=== PATIENT | female | born 1950 | race Caucasian/White ===

== ENCOUNTER 2017-01-03 12:50 | Inpatient (IN) | payer BC ==
[2017-01-03] MEDS ORDERED: Polyethylene Glycol 3350 Powder 17 GM Packet PO PRN (14:17)
[2017-01-03] MEDS ORDERED: Sodium Chloride 0.9% 10 ML Syringe FLUSH PRN (14:17)
[2017-01-03] MEDS ORDERED: Albuterol 0.083% 2.5 MG/3 ML Neb Soln NEB PRN (14:17)
[2017-01-03] MEDS ORDERED: Ondansetron 4 MG Tab.DIS PO PRN (14:17)
[2017-01-03] MEDS ORDERED: Acetaminophen 325 MG Tab PO PRN (14:17)
[2017-01-03] MEDS ORDERED: Diazepam 5 MG Tab PO PRN (14:20)
--- NOTE | 2017-01-03 14:27 | PCM.HP ---
H&P History of Present Illness - General Date of Service: 01/03/17 Admit Problem/Dx: Admission Diagnosis/Problem Admission Diagnosis/Problem Pneumonia Source of Information: Patient, Provider History Limitations: Reports: No limitations - History of Present Illness Initial Comments - Free Text/Narative: Merissa presents to the hospital as a direct admission from the clinic where she presented with fever cough and shortness of breath. Workup in the clinic was suggestive of a lingular pneumonia and she was sent to the hospital for admission with borderline oxygen numbers. She reports that she has been struggling with a cough for the past month and that she was fine be getting better until the last 4 days. Over the past 4 days she has developed an increase in her cough and shortness of breath. Her cough has now become productive with brownish sputum. She has had temperatures as high as 102 in the last week. Temperatures the past few days have been 99-100. She has not had much of an appetite though she has maintained hydration fairly well. Energy is greatly decreased from baseline. She is short of breath with even minimal activity. No complaints of abdominal pain or nausea. Bowels have remained normal. She had antibiotics and steroids one month ago and felt better after taking those but feels worse again. No complaints of chest pain or hemoptysis. - Related Data Allergies/Adverse Reactions: Allergies Allergy/AdvReac Type Severity Reaction Status Date / Time levofloxacin [From Levaquin] Allergy Rash Verified 09/26/16 09:57 amoxicillin trihydrate AdvReac Nausea and Verified 09/26/16 09:57 [From Augmentin] Vomiting Home Medications: Home Meds Diazepam [Valium] 5 mg PO BID PRN 06/22/14 [History] Triamcinolone Acetonide [Kenalog 0.1% Crm] 1 applic TOP BID PRN 06/22/14 [ History] Urea [Urea 40% Crm] 1 applic TOP BID PRN 06/22/14 [History] Ca Citrate/Mgox/Vit D3/B6/Min [Calcium Citrate Plus Tablet] 1 tab PO BID [History] Cyanocobalamin (Vitamin B-12) [Vitamin B-12] 2,500 mcg SL DAILY 11/28/15 [ History] Multivitamin-Min/Iron/FA/Vit K [Multi-Day Plus Minerals Tablet] 1 tab PO DAILY 11/28/15 [History] Omeprazole [Prilosec] 40 mg PO BID 11/28/15 [History] Vitamin B Complex [B Complex] 1 tab PO DAILY 11/28/15 [History] Albuterol [IJD: Ventolin HFA] 2 puff INH Q6H PRN 09/24/16 [History] Aspirin [Adult Low Dose Aspirin EC] 81 mg PO DAILY 09/24/16 [History] Cholecalciferol (Vitamin D3) [Just D] 800 units PO DAILY 09/24/16 [History] Clobetasol [Temovate 0.05% Oint] 1 applic TOP BID 09/24/16 [History] Iron,Carbonyl/Ascorbic Acid [Vitron-C Tablet] 1 tab PO BID 09/24/16 [History] Metoprolol Succinate [Toprol XL] 25 mg PO DAILY 09/24/16 [History] traZODone 50 - 100 mg PO BEDTIME PRN 09/24/16 [History] Umeclidinium Brm/Vilanterol Tr [Anoro Ellipta 62.5-25 Mcg INH] 1 puff INH DAILYRT 01/03/17 [History] Past Medical History HEENT History: Reports: None Cardiovascular History: Reports: Hypertension Respiratory History: Reports: COPD Gastrointestinal History: Reports: Colon polyp, GERD Genitourinary History: Reports: Renal calculus STRIPPER PRELIMINARY History: Reports: Musculoskeletal History: Reports: Arthritis, Fracture Other Musculoskeletal History: hx ankle fracture Neurological History: Reports: Migraines Hematologic History: Reports: B12 deficiency Dermatologic History: Reports: Psoriasis - Infectious Disease History Infectious Disease History: Reports: Chicken pox - Past Surgical History HEENT Surgical History: Reports: Naso-sinus surgery Cardiovascular Surgical History: Reports: None Respiratory Surgical History: Reports: None GI Surgical History: Reports: Appendectomy, Bariatric procedure, Cholecystectomy , Colonoscopy, EGD, Hernia, inguinal Female Surgical History: Reports: None, section Neurological Surgical History: Reports: Other (see below) Other Neurological Surgeries/Procedures: ruptured disc in neck Musculoskeletal Surgical History: Reports: None Social & Family History - Family History Respiratory: Reports: COPD Musculoskeletal: Reports: Arthritis Neurological: Reports: Migraines Dermatologic: Reports: Psoriasis Oncologic: Reports: Breast - Tobacco Use Smoking Status *Q: Former Smoker Years of Tobacco use: 30 Packs/Tins Daily: 2 Used Tobacco, but Quit: Yes Month Tobacco Last Used: 9 years ago Tobacco Use Comment: quit 9 years ago Second Hand Smoke Exposure: No - Caffeine Use Caffeine Use: Reports: Coffee Caffeine Use Comment: 2 cups per day - Alcohol Use Days Per Week of Alcohol Use: 0 - Recreational Drug Use Recreational Drug Use: No H&P Review of Systems - Review of Systems: Review Of Systems: See Below Free Text/Narrative: A complete 12 point review of systems was obtained. Pertinent positives and negatives are noted in the history of present illness. All other systems were reviewed and were negative except as noted. Exam - Exam Exam: See Below - Vital Signs Weight: 83.915 kg - Exam Quality Assessment: No: supplemental oxygen, urinary catheter General: alert, oriented, cooperative. No: mild distress HEENT: Conjunctiva clear, Mucosa moist & pink, Normal nasal septum. No: Scleral icterus Neck: supple, trachea midline. No: lymphadenopathy, thyromegaly Lungs: Clear to auscultation, Normal respiratory effort Cardiovascular: regular rate, regular rhythm Abdomen: normal bowel sounds, soft. No: distention, tenderness Back Exam: normal inspection, full range of motion Extremities: normal inspection, normal pulses. No: edema Peripheral Pulses: 2+: dorsalis pedis (L), dorsalis pedis (R) Skin: warm, dry Neuro Extensive - Mental Status: alert, oriented x3, nl response to commands Neuro Extensive - Motor, Sensory, Reflexes: CN II-XII intact. No: dysarthria, abnormal motor, tremor Psychiatric: alert, normal affect - Patient Data Lab Results last 24 hrs: WBC 14K Imaging Impressions last 24 hrs: chest x-ray in the clinic suggested lingular infiltrate *Q Meaningful Use (ADM) - VTE *Q VTE Criteria *Q: - Stroke *Q Stroke Criteria *Q: - AMI *Q AMI Criteria *Q: - Problem List (1) Pneumonia SNOMED Code(s): 284764814 ICD Code: J18.9 - PNEUMONIA, UNSPECIFIED ORGANISM Status: Acute Current Visit: Yes Qualifiers: Pneumonia type: due to unspecified organism Laterality: left Lung location: unspecified part of lung Qualified Code(s): J18.9 - Pneumonia, unspecified organism Problem List Initiated/Reviewed/Updated: Yes Orders Last 24hrs: Active Orders 24 hr Category Date Time Status Patient Status [ADT] Routine ADT 01/03/17 14:17 Ordered Notify Provider Vital Signs [RC] ASDIRECTED Care 01/03/17 14:18 Ordered Oxygen Therapy [RC] PRN Care 01/03/17 14:17 Ordered Peripheral IV Care [RC] . DIRECTED Care 01/03/17 14:20 Ordered RT Aerosol Therapy [RC] ASDIRECTED Care 01/03/17 14:20 Ordered Up ad Martine [RC] ASDIRECTED Care 01/03/17 14:17 Ordered VTE/DVT Education [RC] Per Unit Routine Care 01/03/17 14:17 Ordered Vital Signs [RC] Q4H Care 01/03/17 14:17 Ordered Regular Diet [DIET] Diet 01/03/17 Dinner Ordered BASIC METABOLIC PANEL,BMP [CHEM] AM Lab 01/04/17 05:11 Ordered CBC W/O DIFF,HEMOGRAM [HEME] AM Lab 01/04/17 05:11 Ordered Acetaminophen [Tylenol] Med 01/03/17 14:17 Ordered 650 mg PO Q4H PRN Albuterol [Proventil Neb Soln] Med 01/03/17 14:17 Ordered 2.5 mg NEB Q4H PRN Aspirin [Adult Low Dose Aspirin EC] Med 01/04/17 09:00 Ordered 81 mg PO DAILY Azithromycin [Zithromax] Med 01/03/17 14:30 Ordered 500 mg PO DAILY Benzonatate [Tessalon Perles] Med 01/03/17 14:22 Ordered 100 mg PO TID PRN Codeine/guaiFENesin [Robitussin AC] Med 01/03/17 14:22 Ordered 10 ml PO Q4H PRN Diazepam [Valium] Med 01/03/17 14:20 Ordered 5 mg PO BID PRN Ibuprofen [Motrin] Med 01/03/17 14:17 Ordered 600 mg PO Q6H PRN Metoprolol Succinate [Toprol XL] Med 01/04/17 09:00 Ordered 25 mg PO DAILY Omeprazole [Prilosec] Med 01/03/17 21:00 Ordered 40 mg PO BID Ondansetron [Zofran ODT] Med 01/03/17 14:17 Ordered 4 mg PO Q6H PRN Polyethylene Glycol 3350 [MiraLAX] Med 01/03/17 14:17 Ordered 17 gm PO DAILY PRN Sodium Chloride 0.9% @ 125 MLS/HR (1000ml) Med 01/03/17 14:30 Ordered Sodium Chloride 0.9% [Normal Saline] 1,000 ml IV ASDIRECTED Sodium Chloride 0.9% [Saline Flush] Med 01/03/17 14:17 Ordered 10 ml FLUSH ASDIRECTED PRN Umeclidinium Brm/Vilanterol Tr [Anoro Ellipta 62.5-25 Med 01/04/17 07:00 Ordered Mcg INH] 1 puff INH DAILYRT cefTRIAXone [Rocephin] 1 gm Med 01/03/17 14:30 Ordered Sodium Chloride 0.9% [Normal Saline] 50 ml IV Q24H traZODone [traZODone] Med 01/03/17 14:20 Ordered 50 - 100 mg PO BEDTIME PRN Peripheral IV Insertion Adult [OM.PC] Routine Oth 01/03/17 14:17 Ordered Sequential Compression Device [OM.PC] Per Unit Routine Oth 01/03/17 14:19 Ordered Resuscitation Status Routine Resus Stat 01/03/17 14:17 Ordered Assessment/Plan Comment:: Assessment and plan - Left lung pneumonia - borderline oxygen numbers in the clinic but not currently hypoxic. She does have leukocytosis at this time but is not currently febrile. Symptomatic with activity. Mildly dehydrated. -Ceftriaxone and azithromycin with history of COPD -Supplement oxygen if needed -Cough suppressant -Blood cultures if fever Hypertension - blood pressure currently normal and usual medications will be continued. Maintenance issues - - DVT prophylaxis - mechanical - GI prophylaxis - not indicated - Nutrition - regular diet - Miller catheter - not indicated CODE STATUS - full code Admission justification - patient will be referred to observation status for initial management with symptoms but not significant objective findings. Disposition - anticipate discharge to home in the next one or 2 days Primary care physician - Dr. Zen Sawyer M.D.
[2017-01-03] MEDS: cefTRIAXone 1 GM in Sodium Chloride 0.9% 50 ML IV SCH (15:06)
[2017-01-03] MEDS: Azithromycin 250 MG Tab PO SCH (15:11)
[2017-01-03] MEDS: Codeine/guaiFENesin 100mg-10 MG/5 ML Syrup 10 ML Cup PO PRN ×2 (15:29→20:02)
[2017-01-03] MEDS: Pantoprazole 40 MG Tab.CR PO SCH (17:31)
[2017-01-03] MEDS: Ibuprofen 600 MG Tab PO PRN ×2 (17:31→22:48)
[2017-01-03] MEDS: Benzonatate 100 MG Cap PO PRN (22:47)
[2017-01-03] MEDS: Sodium Chloride 0.9% 1,000 ML IV SCH (22:50)
[2017-01-03] MEDS: traZODone 50 MG Tab PO PRN (22:54)
[2017-01-04] MEDS: Codeine/guaiFENesin 100mg-10 MG/5 ML Syrup 10 ML Cup PO PRN ×4 (03:56→21:44)
[2017-01-04] MEDS: Sodium Chloride 0.9% 1,000 ML IV SCH (06:33)
[2017-01-04] MEDS: Benzonatate 100 MG Cap PO PRN ×2 (06:37→21:44)
[2017-01-04] MEDS ORDERED: Non-Formulary Medication 1 Each (Umeclidinium Brm/Vilanterol Tr [Anoro Ellipta 62.5-25 Mcg INH SCH (07:00)
[2017-01-04] MEDS: Pantoprazole 40 MG Tab.CR PO SCH ×2 (07:35→17:00)
[2017-01-04] MEDS: Ibuprofen 600 MG Tab PO PRN ×3 (07:40→21:44)
[2017-01-04] MEDS: ANORO ELLIPTA 62.5MCG/25MCG INHALER (PTOM) INH SCH (08:24)
[2017-01-04] MEDS: Metoprolol Succinate 25 MG Tab.ER PO SCH (08:33)
[2017-01-04] MEDS: Azithromycin 250 MG Tab PO SCH (08:34)
[2017-01-04] MEDS: Aspirin 81 MG Tab.EC PO SCH (08:34)
--- NOTE | 2017-01-04 13:34 | PCM.PN ---
- General Info Date of Service: 01/04/17 Functional Status: Reports: pain controlled, tolerating diet - Review of Systems Pulmonary: Reports: shortness of breath, cough Systems Review Comment:: No acute events overnight but patient was not feeling any better today. [place] a little better briefly last night but is still very short of breath and coughing frequently. Oxygenation has been stable and so far she has not required supplemental oxygen. She is short of breath with any activity. She has no energy and no appetite. She is wheezing today. No fevers overnight. - Patient Data Vitals - most recent: Last Vital Signs Temp 36.9 C 01/04/17 10:43 Pulse 63 01/04/17 10:43 Resp 18 01/04/17 10:43 BP 112/56 L 01/04/17 10:43 Pulse Ox 95 01/04/17 10:43 Weight - most recent: 83.915 kg I&O - last 24 hours: Intake & Output 01/03/17 01/04/17 01/04/17 22:59 06:59 14:59 Intake Total 650 1280 Output Total 900 800 Balance -250 -800 1280 Lab Results last 24 hrs: Laboratory Results - last 24 hr 01/04/17 01/04/17 Range/Units 04:33 04:33 WBC 4.3 L (4.5-11.0) K/uL RBC 4.41 (3.30-5.50) M/uL Hgb 12.3 (12.0-15.0) g/dL Hct 39.6 (36.0-48.0) % MCV 90 (80-98) fL MCH 28 (27-31) pg MCHC 31 L (32-36) % Plt Count 298 (150-400) K/uL Sodium 143 (140-148) mmol/L Potassium 4.0 (3.6-5.2) mmol/L Chloride 109 H (100-108) mmol/L Carbon Dioxide 28 (21-32) mmol/L Anion Gap 10.0 (5.0-14.0) mmol/L BUN 11 (7-18) mg/dL Creatinine 0.9 (0.6-1.0) mg/dL Est Cr Clr Drug Dosing 62.56 mL/min Estimated GFR (MDRD) > 60 (>60) Glucose 86 (74-106) mg/dL Calcium 8.2 L (8.5-10.1) mg/dL Med Orders - Current: Current Medications Acetaminophen (Tylenol) 650 mg PO Q4H PRN PRN Reason: Pain (Mild 1-3)/fever Last Admin: 01/03/17 15:35 Dose: 650 mg Albuterol (Proventil Neb Soln) 2.5 mg NEB Q4H PRN PRN Reason: Shortness Of Breath/wheezing Aspirin (Halfprin) 81 mg PO DAILY [facility] Last Admin: 01/04/17 08:34 Dose: 81 mg Azithromycin (Zithromax) 500 mg PO DAILY [facility] Last Admin: 01/04/17 08:34 Dose: 500 mg Benzonatate (Tessalon Perles) 100 mg PO TID PRN PRN Reason: Cough Last Admin: 01/04/17 06:37 Dose: 100 mg Diazepam (Valium.) 5 mg PO BID PRN PRN Reason: Anxiety Guaifenesin/Codeine Phosphate (Robitussin Ac) 10 ml PO Q4H PRN PRN Reason: Cough Last Admin: 01/04/17 12:43 Dose: 10 ml Ceftriaxone Sodium 1 gm/ (Sodium Chloride) 50 mls @ 100 mls/hr IV Q24H [facility] Last Admin: 01/03/17 15:06 Dose: 100 mls/hr Ibuprofen (Motrin) 600 mg PO Q6H PRN PRN Reason: Pain/Fever Last Admin: 01/04/17 07:40 Dose: 600 mg Metoprolol Succinate (Toprol Xl) 25 mg PO DAILY [facility] Last Admin: 01/04/17 08:33 Dose: 25 mg Ondansetron HCl (Zofran Odt) 4 mg PO Q6H PRN PRN Reason: Nausea able to take PO Pantoprazole Sodium (Protonix) 40 mg PO BIDAC [facility] Last Admin: 01/04/17 07:35 Dose: 40 mg Anoro Ellipta 62. 5mcg/25mcg Inhaler ( Ptom) 0 each INH DAILYRT [facility] Last Admin: 01/04/17 08:24 Dose: 1 each Polyethylene Glycol (Miralax) 17 gm PO DAILY PRN PRN Reason: Constipation Sodium Chloride (Saline Flush) 10 ml FLUSH ASDIRECTED PRN PRN Reason: Keep Vein Open Trazodone HCl (Trazodone) 50 - 100 mg PO BEDTIME PRN PRN Reason: Sleep Last Admin: 01/03/17 22:54 Dose: 100 mg Discontinued Medications Sodium Chloride (Normal Saline) 1,000 mls @ 125 mls/hr IV ASDIRECTED [facility] Last Admin: 01/04/17 06:33 Dose: 125 mls/hr - Exam Quality Assessment: No: supplemental oxygen General: alert, oriented, cooperative, no acute distress Neck: supple Lungs: Crackles (rare left lung base), Wheezing (mild exp lower lung dow) Cardiovascular: Regular Rate, Regular Rhythm Abdomen: soft, no distension Extremities: no edema Skin: warm, dry Psy/Mental Status: alert, normal affect - Problem List & Annotations (1) Pneumonia SNOMED Code(s): 849587605 Code(s): J18.9 - PNEUMONIA, UNSPECIFIED ORGANISM Status: Acute Current Visit: Yes Qualifiers: Pneumonia type: due to unspecified organism Laterality: left Lung location: unspecified part of lung Qualified Code(s): J18.9 - Pneumonia, unspecified organism - Problem List Review Problem List Initiated/Reviewed/Updated: Yes - My Orders Last 24 Hours: My Active Orders 01/03/17 14:17 Patient Status [ADT] Routine Oxygen Therapy [RC] PRN Up ad Martine [RC] ASDIRECTED VTE/DVT Education [RC] Per Unit Routine Vital Signs [RC] Q4H Acetaminophen [Tylenol] 650 mg PO Q4H PRN Albuterol [Proventil Neb Soln] 2.5 mg NEB Q4H PRN Ibuprofen [Motrin] 600 mg PO Q6H PRN Ondansetron [Zofran ODT] 4 mg PO Q6H PRN Polyethylene Glycol 3350 [MiraLAX] 17 gm PO DAILY PRN Sodium Chloride 0.9% [Saline Flush] 10 ml FLUSH ASDIRECTED PRN Peripheral IV Insertion Adult [OM.PC] Routine Resuscitation Status Routine 01/03/17 14:18 Notify Provider Vital Signs [RC] ASDIRECTED 01/03/17 14:19 Sequential Compression Device [OM.PC] Per Unit Routine 01/03/17 14:20 Peripheral IV Care [RC] Q12H RT Aerosol Therapy [RC] ASDIRECTED Diazepam [Valium] 5 mg PO BID PRN traZODone 50 - 100 mg PO BEDTIME PRN 01/03/17 14:22 Benzonatate [Tessalon Perles] 100 mg PO TID PRN Codeine/guaiFENesin [Robitussin AC] 10 ml PO Q4H PRN 01/03/17 14:30 Azithromycin [Zithromax] 500 mg PO DAILY cefTRIAXone [Rocephin] 1 gm Sodium Chloride 0.9% [Normal Saline] 50 ml IV Q24H 01/03/17 16:30 Pantoprazole [Protonix] 40 mg PO BIDAC 01/03/17 Dinner Regular Diet [DIET] 01/04/17 07:00 Patient's Own Medication [Ptom] 0 each INH DAILYRT 01/04/17 09:00 Aspirin [Halfprin] 81 mg PO DAILY Metoprolol Succinate [Toprol XL] 25 mg PO DAILY 01/04/17 13:32 RT Aerosol Therapy [RC] ASDIRECTED predniSONE 40 mg PO ONETIME ONE 01/04/17 14:00 Sodium Chloride 0.9% [Normal Saline] 1,000 ml IV ASDIRECTED 01/04/17 15:00 Albuterol [Proventil Neb Soln] 2.5 mg NEB QIDRT 01/05/17 07:30 predniSONE 20 mg PO BIDAC - Plan Plan:: Assessment and plan - Left lung pneumonia - no significant hypoxia but still has troublesome symptoms. Unclear if viral or bacterial though I'm treating as a bacterial infection at this time. She has developed wheezing today. -Ceftriaxone and azithromycin with history of COPD -Start prednisone with plan for five-day burst -Supplement oxygen if needed -Cough suppressant -Blood cultures if fever Hypertension - blood pressure currently normal and usual medications will be continued. Maintenance issues - - DVT prophylaxis - mechanical - GI prophylaxis - not indicated - Nutrition - regular diet Disposition - anticipate discharge to home tomorrow Kwasi Sawyer M.D.
[2017-01-04] MEDS ORDERED: predniSONE 20 MG Tab PO ONE (14:00)
[2017-01-04] MEDS ORDERED: Sodium Chloride 0.9% 1,000 ML IV SCH (14:00)
[2017-01-04] MEDS: Albuterol 0.083% 2.5 MG/3 ML Neb Soln NEB SCH ×2 (14:45→21:45)
[2017-01-04] MEDS: cefTRIAXone 1 GM in Sodium Chloride 0.9% 50 ML IV SCH (15:14)
[2017-01-04] MEDS: traZODone 50 MG Tab PO PRN (21:45)
[2017-01-05] MEDS: Codeine/guaiFENesin 100mg-10 MG/5 ML Syrup 10 ML Cup PO PRN ×2 (03:01→07:39)
[2017-01-05] MEDS: Albuterol 0.083% 2.5 MG/3 ML Neb Soln NEB SCH ×2 (07:05→10:47)
[2017-01-05] MEDS: ANORO ELLIPTA 62.5MCG/25MCG INHALER (PTOM) INH SCH (07:05)
[2017-01-05 07:22] VITALS: BP 128/64
[2017-01-05] MEDS ORDERED: predniSONE 20 MG Tab PO SCH (07:30)
[2017-01-05] MEDS: Pantoprazole 40 MG Tab.CR PO SCH (07:39)
[2017-01-05] MEDS: Metoprolol Succinate 25 MG Tab.ER PO SCH (08:24)
[2017-01-05] MEDS: Aspirin 81 MG Tab.EC PO SCH (08:24)
[2017-01-05] MEDS: Azithromycin 250 MG Tab PO SCH (08:24)
--- NOTE | 2017-01-05 10:11 | PCM.DCSUM1 ---
Discharge Summary - Hospital Course Brief History: 66-year-old female with history of COPD who presented with cough and shortness of breath and was admitted for management of a left lung pneumonia - Discharge Data Discharge Date: 01/05/17 Discharge Disposition: Home, Self-Care 01 Condition: Good - Discharge Diagnosis/Problem(s) (1) Pneumonia SNOMED Code(s): 053503446 ICD Code: J18.9 - PNEUMONIA, UNSPECIFIED ORGANISM Status: Acute Current Visit: Yes Qualifiers: Pneumonia type: due to unspecified organism Laterality: left Lung location: unspecified part of lung Qualified Code(s): J18.9 - Pneumonia, unspecified organism - Patient Summary/Data Hospital Course: Merissa presented to the clinic with cough and shortness of breath. workup revealed leukocytosis with a white blood cell count of 14,000 and did infiltrate in the lingula on the chest x-ray. She was borderline hypoxic and appeared ill so she was sent for direct admission. We started her on ceftriaxone and azithromycin have been provided some IV fluids. The evening after admission she was feeling a little better but by the next morning was feeling the same or a little worse than when she came to the clinic. She started wheezing the morning after admission so prednisone was started. Her vitals and oxygenation remained stable throughout the hospital stay. On the morning of discharge her wheezing has resolved. She is ambulating the entire length of the hospital without significant dyspnea. She does have a cough but has not had any fevers. She feels well enough to go home at this time. The plan is for 2 additional days of azithromycin for a total of 5 days as well as 2 more days of prednisone for a total of 4 days. I did provide a prescription for nebulizers as well as Tessalon Perles. She will followup if needed if her symptoms do not continue to improve. - Patient Instructions Diet: Regular Diet as Tolerated Activity: As Tolerated Driving: May Drive Today Showering/Bathing: May Shower Notify Provider of: Fever, Increased Pain, Nausea and/or Vomiting Other/Special Instructions: 1. You were in the hospital for management of a left lung pneumonia. You also had some wheezing related to the infection suggesting this irritated your COPD. I recommended 2 additional days of antibiotic therapy with azithromycin taken once daily in the morning on Saturday and Saturday. You should also take prednisone twice daily with meals for 5 more doses. Your first dose will be due this evening with supper. I have also provided prescriptions for Tessalon to help with her cough and albuterol nebulizers to help with shortness of breath. 2. Continue your other home medications as previously prescribed. 3. Please seek medical attention if you develop fever greater than 101, worsening shortness of breath or chest pain - Discharge Plan Prescriptions/Med Rec: Albuterol [IJD: Albuterol] 2.5 mg NEB Q4H PRN #60 nebule PRN Reason: Shortness Of Breath Azithromycin 500 mg PO DAILY #2 tablet Benzonatate [Tessalon Perles] 100 mg PO TID PRN #30 cap PRN Reason: Cough Prednisone [IJD: predniSONE] 20 mg PO BIDAC #5 tablet Home Medications: Home Meds Diazepam [Valium] 5 mg PO BID PRN 06/22/14 [History] Triamcinolone Acetonide [Kenalog 0.1% Crm] 1 applic TOP BID PRN 06/22/14 [ History] Urea [Urea 40% Crm] 1 applic TOP BID PRN 06/22/14 [History] Ca Citrate/Mgox/Vit D3/B6/Min [Calcium Citrate Plus Tablet] 1 tab PO BID [History] Cyanocobalamin (Vitamin B-12) [Vitamin B-12] 2,500 mcg SL DAILY 11/28/15 [ History] Multivitamin-Min/Iron/FA/Vit K [Multi-Day Plus Minerals Tablet] 1 tab PO DAILY 11/28/15 [History] Omeprazole [Prilosec] 40 mg PO BID 11/28/15 [History] Vitamin B Complex [B Complex] 1 tab PO DAILY 11/28/15 [History] Albuterol [IJD: Ventolin HFA] 2 puff INH Q6H PRN 09/24/16 [History] Aspirin [Adult Low Dose Aspirin EC] 81 mg PO DAILY 09/24/16 [History] Cholecalciferol (Vitamin D3) [Just D] 800 units PO DAILY 09/24/16 [History] Clobetasol [Temovate 0.05% Oint] 1 applic TOP BID 09/24/16 [History] Iron,Carbonyl/Ascorbic Acid [Vitron-C Tablet] 1 tab PO BID 09/24/16 [History] Metoprolol Succinate [Toprol XL] 25 mg PO DAILY 09/24/16 [History] traZODone 50 - 100 mg PO BEDTIME PRN 09/24/16 [History] Umeclidinium Brm/Vilanterol Tr [Anoro Ellipta 62.5-25 Mcg INH] 1 puff INH DAILYRT 01/03/17 [History] Albuterol [IJD: Albuterol] 2.5 mg NEB Q4H PRN #60 nebule 01/05/17 [Rx] Azithromycin 500 mg PO DAILY #2 tablet 01/05/17 [Rx] Benzonatate [Tessalon Perles] 100 mg PO TID PRN #30 cap 01/05/17 [Rx] Prednisone [IJD: predniSONE] 20 mg PO BIDAC #5 tablet 01/05/17 [Rx] Patient Handouts: Community-Acquired Pneumonia, Adult, Prednisone tablets Referrals: Danny Zaldivar MD [Primary Care Provider] - (followup as needed if your symptoms do not continue to get better or they get worse) - Discharge Summary/Plan Comment DC Time >30 min.: No (25) - Patient Data Vitals - Most Recent: Last Vital Signs Temp 36.7 C 01/05/17 07:00 Pulse 103 H 01/05/17 08:24 Resp 18 01/05/17 07:00 BP 128/64 01/05/17 08:24 Pulse Ox 97 01/05/17 07:00 Weight - Most Recent: 83.915 kg I&O - Last 24 hours: Intake & Output 01/04/17 01/05/17 01/05/17 22:59 06:59 14:59 Intake Total 2736 1250 Output Total 1250 1050 Balance 1486 200 Med Orders - Current: Current Medications Acetaminophen (Tylenol) 650 mg PO Q4H PRN PRN Reason: Pain (Mild 1-3)/fever Last Admin: 01/03/17 15:35 Dose: 650 mg Albuterol (Proventil Neb Soln) 2.5 mg NEB Q4H PRN PRN Reason: Shortness Of Breath/wheezing Last Admin: 01/05/17 04:44 Dose: 2.5 mg Albuterol (Proventil Neb Soln) 2.5 mg NEB QIDRT [facility] Last Admin: 01/05/17 07:05 Dose: 2.5 mg Aspirin (Halfprin) 81 mg PO DAILY [facility] Last Admin: 01/05/17 08:24 Dose: 81 mg Azithromycin (Zithromax) 500 mg PO DAILY [facility] Last Admin: 01/05/17 08:24 Dose: 500 mg Benzonatate (Tessalon Perles) 100 mg PO TID PRN PRN Reason: Cough Last Admin: 01/04/17 21:44 Dose: 100 mg Diazepam (Valium.) 5 mg PO BID PRN PRN Reason: Anxiety Guaifenesin/Codeine Phosphate (Robitussin Ac) 10 ml PO Q4H PRN PRN Reason: Cough Last Admin: 01/05/17 07:39 Dose: 10 ml Ceftriaxone Sodium 1 gm/ (Sodium Chloride) 50 mls @ 100 mls/hr IV Q24H [facility] Last Admin: 01/04/17 15:14 Dose: 100 mls/hr Sodium Chloride (Normal Saline) 1,000 mls @ 50 mls/hr IV ASDIRECTED [facility] Last Admin: 01/04/17 15:21 Dose: 50 mls/hr Ibuprofen (Motrin) 600 mg PO Q6H PRN PRN Reason: Pain/Fever Last Admin: 01/04/17 21:44 Dose: 600 mg Metoprolol Succinate (Toprol Xl) 25 mg PO DAILY [facility] Last Admin: 01/05/17 08:24 Dose: 25 mg Ondansetron HCl (Zofran Odt) 4 mg PO Q6H PRN PRN Reason: Nausea able to take PO Pantoprazole Sodium (Protonix) 40 mg PO BIDAC [facility] Last Admin: 01/05/17 07:39 Dose: 40 mg Anoro Ellipta 62. 5mcg/25mcg Inhaler ( Ptom) 0 each INH DAILYRT [facility] Last Admin: 01/05/17 07:05 Dose: 1 each Polyethylene Glycol (Miralax) 17 gm PO DAILY PRN PRN Reason: Constipation Prednisone (Prednisone) 20 mg PO BIDAC [facility] Last Admin: 01/05/17 07:39 Dose: 20 mg Sodium Chloride (Saline Flush) 10 ml FLUSH ASDIRECTED PRN PRN Reason: Keep Vein Open Trazodone HCl (Trazodone) 50 - 100 mg PO BEDTIME PRN PRN Reason: Sleep Last Admin: 01/04/17 21:45 Dose: 100 mg Discontinued Medications Sodium Chloride (Normal Saline) 1,000 mls @ 125 mls/hr IV ASDIRECTED [facility] Last Admin: 01/04/17 06:33 Dose: 125 mls/hr Prednisone (Prednisone) 40 mg PO ONETIME ONE Stop: 01/04/17 14:01 Last Admin: 01/04/17 15:17 Dose: 40 mg *Q Meaningful Use (DIS) - VTE *Q VTE Criteria *Q: - Stroke *Q Stroke Criteria *Q: - AMI *Q AMI Criteria *Q:
== END 2017-01-05 11:45 | disposition home or self-care (01) | DRG 139 ==
LOC: JP.MS 12:50
PROVIDERS: ADMIT Internal Medicine; ATTEND Internal Medicine
DX: J18.9 Pneumonia, unspecified organism (principal); J44.9 Chronic obstructive pulmonary disease, unspecified; K21.9 Gastro-esophageal reflux disease without esophagitis; M19.90 Unspecified osteoarthritis, unspecified site; E53.8 Deficiency of other specified B group vitamins; L40.9 Psoriasis, unspecified; Z98.84 Bariatric surgery status; Z87.891 Personal history of nicotine dependence; Z88.1 Allergy status to other antibiotic agents; Z79.82 Long term (current) use of aspirin; I10 Essential (primary) hypertension; R06.2 Wheezing; Z79.52 Long term (current) use of systemic steroids
CPT/HCPCS: 36415; 80048; 85027; 94640; 94640-76; 96361; 96374; 96376; A9270-GY; G0378; G0379; J0696; J7040; J7050

== ENCOUNTER 2017-06-09 16:32 | Emergency (ER) | payer BC ==
[2017-06-09] MEDS ORDERED: Albuterol/Ipratropium 3.0-0.5 MG/3 ML Neb Soln NEB ONE ×2 (16:53→17:40)
[2017-06-09] MEDS ORDERED: Sodium Chloride 0.9% 10 ML Syringe FLUSH PRN (16:58)
[2017-06-09] MEDS ORDERED: methylPREDNISolone Sodium Succinate 125 MG/2 ML SDV IM ONE (16:59)
--- NOTE | 2017-06-09 18:35 | EDM.PDOC ---
<Ralph Lebron - Last Filed: 06/09/17 21:45> ED HPI GENERAL MEDICAL PROBLEM - General Chief Complaint: Respiratory Problem Stated Complaint: COPD Time Seen by Provider: 06/09/17 16:52 Anterior Chest Pain Score (Numeric/FACES): 3 - Related Data Allergies Allergy/AdvReac Type Severity Reaction Status Date / Time levofloxacin [From Levaquin] Allergy Rash Verified 06/09/17 16:45 amoxicillin trihydrate AdvReac Nausea and Verified 06/09/17 16:45 [From Augmentin] Vomiting Home Meds: Home Meds Diazepam [Valium] 5 mg PO BID PRN 06/22/14 [History] Triamcinolone Acetonide [Kenalog 0.1% Crm] 1 applic TOP BID PRN 06/22/14 [ History] Urea [Urea 40% Crm] 1 applic TOP BID PRN 06/22/14 [History] Ca Citrate/Mgox/Vit D3/B6/Min [Calcium Citrate Plus Tablet] 1 tab PO BID [History] Cyanocobalamin (Vitamin B-12) [Vitamin B-12] 2,500 mcg SL DAILY 11/28/15 [ History] Multivitamin-Min/Iron/FA/Vit K [Multi-Day Plus Minerals Tablet] 1 tab PO DAILY 11/28/15 [History] Omeprazole [Prilosec] 40 mg PO BID 11/28/15 [History] Vitamin B Complex [B Complex] 1 tab PO DAILY 11/28/15 [History] Albuterol [IJD: Ventolin HFA] 2 puff INH Q6H PRN 09/24/16 [History] Aspirin [Adult Low Dose Aspirin EC] 81 mg PO DAILY 09/24/16 [History] Cholecalciferol (Vitamin D3) [Just D] 800 units PO DAILY 09/24/16 [History] Clobetasol [Temovate 0.05% Oint] 1 applic TOP BID 09/24/16 [History] Iron,Carbonyl/Ascorbic Acid [Vitron-C Tablet] 1 tab PO BID 09/24/16 [History] Metoprolol Succinate [Toprol XL] 25 mg PO DAILY 09/24/16 [History] traZODone 50 - 100 mg PO BEDTIME PRN 09/24/16 [History] Umeclidinium Brm/Vilanterol Tr [Anoro Ellipta 62.5-25 Mcg INH] 1 puff INH DAILYRT 01/03/17 [History] Albuterol [IJD: Albuterol] 2.5 mg NEB Q4H PRN #60 nebule 01/05/17 [Rx] Past Medical History HEENT History: Reports: None Cardiovascular History: Reports: Hypertension Respiratory History: Reports: COPD Gastrointestinal History: Reports: Colon Polyp, GERD Genitourinary History: Reports: Renal Calculus [employer] History: Reports: Musculoskeletal History: Reports: Arthritis, Fracture Other Musculoskeletal History: hx ankle fracture Neurological History: Reports: Migraines Hematologic History: Reports: B12 Deficiency Dermatologic History: Reports: Psoriasis - Infectious Disease History Infectious Disease History: Reports: Chicken Pox, Shingles - Past Surgical History HEENT Surgical History: Reports: Naso-Sinus Surgery Cardiovascular Surgical History: Reports: None Respiratory Surgical History: Reports: None GI Surgical History: Reports: Appendectomy, Bariatric Procedure, Cholecystectomy , Colonoscopy, EGD, Hernia, Inguinal Female Surgical History: Reports: None, Section Neurological Surgical History: Reports: Other (See Below) Musculoskeletal Surgical History: Reports: None Social & Family History - Family History Respiratory: Reports: COPD Musculoskeletal: Reports: Arthritis Neurological: Reports: Migraines Dermatologic: Reports: Psoriasis Oncologic: Reports: Breast - Tobacco Use Smoking Status *Q: Former Smoker Years of Tobacco use: 45 Packs/Tins Daily: 1 Used Tobacco, but Quit: Yes Month Tobacco Last Used: March Second Hand Smoke Exposure: No - Caffeine Use Caffeine Use: Reports: Coffee Caffeine Use Comment: 2 cups per day - Alcohol Use Days Per Week of Alcohol Use: 0 - Recreational Drug Use Recreational Drug Use: No Course - Vital Signs Last Recorded V/S: Last Vital Signs Temp 37.1 C 06/09/17 16:54 Pulse 87 06/09/17 18:45 Resp 24 H 06/09/17 16:54 BP 140/72 06/09/17 18:45 Pulse Ox 93 L 06/09/17 18:45 - Orders/Labs/Meds Labs: Laboratory Tests 06/09/17 06/09/17 Range/Units 17:51 17:51 WBC 5.6 (4.5-11.0) K/uL RBC 4.68 (3.30-5.50) M/uL Hgb 13.5 (12.0-15.0) g/dL Hct 40.8 (36.0-48.0) % MCV 87 (80-98) fL MCH 29 (27-31) pg MCHC 33 (32-36) % Plt Count 217 (150-400) K/uL Neut % (Auto) 50 (36-66) % Lymph % (Auto) 36 (24-44) % Amelia % (Auto) 8 H (2-6) % Eos % (Auto) 5 H (2-4) % Baso % (Auto) 1 (0-1) % Sodium 143 (140-148) mmol/L Potassium 3.8 (3.6-5.2) mmol/L Chloride 108 (100-108) mmol/L Carbon Dioxide 28 (21-32) mmol/L Anion Gap 6.7 (5.0-14.0) mmol/L BUN 13 (7-18) mg/dL Creatinine 1.0 (0.6-1.0) mg/dL Est Cr Clr Drug Dosing 57.33 mL/min Estimated GFR (MDRD) 56 L (>60) Glucose 95 (74-106) mg/dL Calcium 8.4 L (8.5-10.1) mg/dL Total Bilirubin 0.3 (0.2-1.0) mg/dL AST 28 (15-37) U/L ALT 33 (12-78) U/L Alkaline Phosphatase 87 (46-116) U/L C-Reactive Protein 0.08 (0.0-0.3) mg/dL Total Protein 6.4 (6.4-8.2) g/dL Albumin 3.1 L (3.4-5.0) g/dL Globulin 3.3 (2.3-3.5) g/dL Albumin/Globulin Ratio 0.9 L (1.2-2.2) Meds: Medications Discontinued Medications Generic Name Dose Route Start Last Admin Trade Name Wesly PRN Reason Stop Dose Admin Albuterol/Ipratropium 3 ml 06/09/17 16:53 06/09/17 17:06 Duoneb 3.0-0.5 Mg/3 Ml NEB 06/09/17 16:54 3 ml ONETIME ONE Administration Albuterol/Ipratropium 3 ml 06/09/17 17:40 06/09/17 18:13 Duoneb 3.0-0.5 Mg/3 Ml NEB 06/09/17 17:41 3 ml ONETIME ONE Administration Azithromycin 500 mg 06/09/17 19:00 06/09/17 19:13 Zithromax PO 06/09/17 19:01 500 mg ONETIME ONE Administration Benzonatate 200 mg 06/09/17 18:59 06/09/17 19:13 Tessalon Perles PO 06/09/17 19:00 200 mg ONETIME ONE Administration Methylprednisolone Sodium Succinate 125 mg 06/09/17 16:59 06/09/17 17:09 Solu-Medrol IM 06/09/17 17:00 125 mg ONETIME ONE Administration Sodium Chloride 10 ml 06/09/17 16:58 Saline Flush FLUSH ASDIRECTED PRN Keep Vein Open - Re-Assessments/Exams Free Text/Narrative Re-Assessment/Exam: 06/09/17 18:33 66-year-old female with COPD, a worsening cough and shortness of breath over the past several days initially seen and evaluated by Dr. Ashley. Her care was turned over to myself pending labs and a chest x-ray. The chest x-ray is negative, labs are reassuring, white count is normal. She felt somewhat better after the nebulizer treatments but still dyspneic. O2 saturations were normal. She'll be continued on prednisone 50 mg daily with a morning dose with food for at least 5 consecutive days, Tessalon Perles and a course of azithromycin. She' ll return if worsening. Departure - Departure Time of Disposition: 19:15 Disposition: Home, Self-Care 01 Condition: Fair Clinical Impression: COPD exacerbation - Discharge Information Instructions: Chronic Obstructive Pulmonary Disease Exacerbation, [id number] Referrals: Danny Zaldiavr MD [Primary Care Provider] - Forms: ED Department Discharge Care Plan Goals: Continue with her home medications, take 5 pills of prednisone each morning with your first meal for at least 5 consecutive days. You can take the sixth day if you feel it necessary. Use cough suppression medication as prescribed, and take antibiotic as prescribed. Return anytime if worsening or concerns. <Fei Ashley - Last Filed: 06/12/17 18:21> ED HPI GENERAL MEDICAL PROBLEM - General Source of Information: Reports: Patient History Limitations: Reports: No Limitations - History of Present Illness INITIAL COMMENTS - FREE TEXT/NARRATIVE: History of present illness: [66-year-old female had presented with 34 days of increased respiratory distress and cough and shortness of breath. She has history of COPD. She's had no fever chills or cough was dry. She is denying any chest pain.] Review of systems: As per history of present illness and below otherwise all systems reviewed and negative. Past medical history: As per history of present illness and as reviewed below otherwise noncontributory. Surgical history: As per history of present illness and as reviewed below otherwise noncontributory. Social history: No reported history of drug or alcohol abuse. Family history: As per history of present illness and as reviewed below otherwise noncontributory. Physical exam: HEENT: Atraumatic, normocephalic, pupils reactive, negative for conjunctival pallor or scleral icterus, mucous membranes moist, throat clear, neck supple, nontender, trachea midline. Lungs: She had diffuse expiratory wheezing throughout which improved with DuoNeb. She had fair to good air movement. Heart: S1S2, regular, negative for clicks, rubs, or JVD. Abdomen: Soft, nondistended, nontender. Negative for masses or hepatosplenomegaly. Negative for costovertebral tenderness. Pelvis: Stable nontender. Genitourinary: Deferred. Rectal: Deferred. Extremities: Atraumatic, negative for cords or calf pain. Neurovascular unremarkable. Neuro: Awake, alert, oriented. Cranial nerves II through XII unremarkable. Cerebellum unremarkable. Motor and sensory unremarkable throughout. Exam nonfocal. Diagnostics: [] Therapeutics: [] Impression: [Exacerbation of COPD] Plan: [Her care was turned over to Dr. Lebron] Definitive disposition and diagnosis as appropriate pending reevaluation and review of above. ED ROS GENERAL - Review of Systems Review Of Systems: ROS reveals no pertinent complaints other than HPI. ED EXAM, GENERAL - Physical Exam Exam: See Below
[2017-06-09 18:46] VITALS: BP 140/72
[2017-06-09] MEDS ORDERED: Benzonatate 100 MG Cap PO ONE (18:59)
[2017-06-09] MEDS ORDERED: Azithromycin 250 MG Tab PO ONE (19:00)
--- NOTE | 2017-06-10 08:38 | CR ---
Chest 2V INDICATION: cough FINDINGS: Comparison 10/20/2009. Heart is now normal in size. Lungs are clear. Surgical clips right upper quadrant. Chest otherwise negative.
== END 2017-06-09 19:15 | disposition home or self-care (01) ==
LOC: JP.ED 16:32
DX: J44.1 Chronic obstructive pulmonary disease with (acute) exacerbation (principal); I10 Essential (primary) hypertension; K21.9 Gastro-esophageal reflux disease without esophagitis; M19.90 Unspecified osteoarthritis, unspecified site; Z88.1 Allergy status to other antibiotic agents; Z79.82 Long term (current) use of aspirin; Z79.899 Other long term (current) drug therapy; Z87.442 Personal history of urinary calculi; Z90.49 Acquired absence of other specified parts of digestive tract; Z98.84 Bariatric surgery status; Z98.890 Other specified postprocedural states; Z87.891 Personal history of nicotine dependence
CPT/HCPCS: 36415; 71020; 80053; 85025; 86140; 87804; 94640; 96372; 99284; A9270; J2930; J7620

== ENCOUNTER 2017-07-06 03:43 | Emergency (ER) | payer BC ==
[2017-07-06] MEDS ORDERED: Ondansetron 4 MG/2 ML SDV IVPUSH ONE ×2 (04:39→06:34)
[2017-07-06] MEDS ORDERED: HYDROmorphone 0.5 MG/0.5 ML Syringe IVPUSH ONE (04:40)
[2017-07-06] MEDS ORDERED: Prochlorperazine 10 MG/2 ML SDV IVPUSH ONE (04:55)
[2017-07-06] MEDS: Lactated Ringers 1,000 ML IV SCH ×2 (04:56→07:17)
[2017-07-06] MEDS: HYDROmorphone 0.5 MG/0.5 ML Syringe IVPUSH PRN ×2 (06:28→07:50)
--- NOTE | 2017-07-06 06:31 | EDM.PDOC ---
ED HPI GENERAL MEDICAL PROBLEM - General Chief Complaint: Abdominal Pain Stated Complaint: R ABDOMINAL PAIN Time Seen by Provider: 07/06/17 04:25 Source of Information: Reports: Patient History Limitations: Reports: No Limitations - History of Present Illness INITIAL COMMENTS - FREE TEXT/NARRATIVE: c/o crampy RLQ/suprapubic pain for prior 6h, has been progressing from intermittent to constant. Radiates to R lower flank. Nauseated, but no vomiting. Denies fever, but feels cold when getting up. No change in chronic dyspnea from COPD. PMH sig for Germania-en-Y and h/o C/s w/ appy. Onset: Gradual Onset Date: 07/05/17 Onset Time: 21:00 Duration: Getting Worse Location: Reports: Abdomen, Radiates to (R flank) Quality: Denies: Same as Previous Episode Severity: Severe Improves with: Reports: None, Other (No h/o dysparunia) Worsens with: Reports: None Associated Symptoms: Reports: No Other Symptoms Right Lower Abdominal Pain Score (Numeric/FACES): 4 - Related Data Allergies Allergy/AdvReac Type Severity Reaction Status Date / Time levofloxacin [From Levaquin] Allergy Rash Verified 07/06/17 04:06 amoxicillin trihydrate AdvReac Nausea and Verified 07/06/17 04:06 [From Augmentin] Vomiting Home Meds: Home Meds Diazepam [Valium] 5 mg PO BID PRN 06/22/14 [History] Triamcinolone Acetonide [Kenalog 0.1% Crm] 1 applic TOP BID PRN 06/22/14 [ History] Urea [Urea 40% Crm] 1 applic TOP BID PRN 06/22/14 [History] Ca Citrate/Mgox/Vit D3/B6/Min [Calcium Citrate Plus Tablet] 1 tab PO BID [History] Cyanocobalamin (Vitamin B-12) [Vitamin B-12] 2,500 mcg SL DAILY 11/28/15 [ History] Multivitamin-Min/Iron/FA/Vit K [Multi-Day Plus Minerals Tablet] 1 tab PO DAILY 11/28/15 [History] Omeprazole [Prilosec] 40 mg PO BID 11/28/15 [History] Vitamin B Complex [B Complex] 1 tab PO DAILY 11/28/15 [History] Albuterol [IJD: Ventolin HFA] 2 puff INH Q6H PRN 09/24/16 [History] Aspirin [Adult Low Dose Aspirin EC] 81 mg PO DAILY 09/24/16 [History] Cholecalciferol (Vitamin D3) [Just D] 800 units PO DAILY 09/24/16 [History] Clobetasol [Temovate 0.05% Oint] 1 applic TOP BID 09/24/16 [History] Iron,Carbonyl/Ascorbic Acid [Vitron-C Tablet] 1 tab PO BID 09/24/16 [History] Metoprolol Succinate [Toprol XL] 25 mg PO DAILY 09/24/16 [History] traZODone 50 - 100 mg PO BEDTIME PRN 09/24/16 [History] Umeclidinium Brm/Vilanterol Tr [Anoro Ellipta 62.5-25 Mcg INH] 1 puff INH DAILYRT 01/03/17 [History] Albuterol [IJD: Albuterol] 2.5 mg NEB Q4H PRN #60 nebule 01/05/17 [Rx] Past Medical History HEENT History: Reports: None Cardiovascular History: Reports: Hypertension Respiratory History: Reports: COPD Gastrointestinal History: Reports: Colon Polyp, GERD Genitourinary History: Reports: Renal Calculus 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: Musculoskeletal History: Reports: Arthritis, Fracture Other Musculoskeletal History: hx ankle fracture Neurological History: Reports: Migraines Hematologic History: Reports: B12 Deficiency Dermatologic History: Reports: Psoriasis - Infectious Disease History Infectious Disease History: Reports: Chicken Pox, Shingles - Past Surgical History HEENT Surgical History: Reports: Naso-Sinus Surgery Respiratory Surgical History: Reports: None GI Surgical History: Reports: Appendectomy, Bariatric Procedure, Cholecystectomy , Colonoscopy, EGD, Hernia, Inguinal Female Surgical History: Reports: Section Neurological Surgical History: Reports: Other (See Below) Musculoskeletal Surgical History: Reports: None Social & Family History - Family History Respiratory: Reports: COPD Musculoskeletal: Reports: Arthritis Neurological: Reports: Migraines Dermatologic: Reports: Psoriasis Oncologic: Reports: Breast - Tobacco Use Smoking Status *Q: Unknown Ever Smoked Years of Tobacco use: 45 Packs/Tins Daily: 1 Used Tobacco, but Quit: Yes Month Tobacco Last Used: March Second Hand Smoke Exposure: No - Caffeine Use Caffeine Use: Reports: Coffee Caffeine Use Comment: 2 cups per day - Alcohol Use Days Per Week of Alcohol Use: 0 - Recreational Drug Use Recreational Drug Use: No ED ROS GENERAL - Review of Systems Review Of Systems: See Below Constitutional: Denies: Fever, Chills HEENT: Reports: No Symptoms Respiratory: Reports: Shortness of Breath (chronic) Cardiovascular: Reports: No Symptoms. Denies: Chest Pain, Edema GI/Abdominal: Reports: Abdominal Pain, Anorexia. Denies: Black Stool, Bloody Stool : Reports: No Symptoms, Flank Pain (radiation). Denies: Dysuria, Frequency, Hematuria Musculoskeletal: Reports: No Symptoms Skin: Reports: No Symptoms Neurological: Reports: No Symptoms Psychiatric: Reports: No Symptoms Hematologic/Lymphatic: Reports: No Symptoms Immunologic: Reports: No Symptoms ED EXAM, GI/ABD - Physical Exam Exam: See Below Text/Narrative:: Patient in obvious discomfort, having difficulty finding position of comfort. No respiratory distress or cardiopulmonary embarrassment. Patient alert, oriented, and able to provide clear history. Anxious, but otherwise normal affect. No evidence of cognitive impairment. Abdomen is tender to percussion and palpation in RLQ, with some mild TTP in LUQ and RUQ. No rebound or guarding. Ttzyhn-py-[id number] bowel sounds. Sclera anicteric and conjunctive w/o paler. Exam Limited By: No Limitations General Appearance: Alert, WD/WN, Anxious Eyes: Bilateral: Normal Appearance, EOMI Ears: Normal External Exam, Normal Canal, Normal TMs Nose: Normal Inspection, Normal Mucosa, No Blood. No: Nasal Drainage Throat/Mouth: Normal Inspection, Normal Lips, Normal Teeth, Normal Oropharynx, Normal Voice, No Airway Compromise Head: Atraumatic, Normocephalic. No: Facial Swelling Neck: Normal Inspection, Supple, Non-Tender, Full Range of Motion. No: Lymphadenopathy (R), Lymphadenopathy (L) Respiratory/Chest: No Respiratory Distress, Lungs Clear, No Accessory Muscle Use , Decreased Breath Sounds Cardiovascular: Normal Peripheral Pulses, Regular Rate, Rhythm, No Edema, No Murmur GI/Abdominal Exam: No Distention, No Abnormal Bruit, Tender. No: Guarding, Rigid, Rebound, Hernia (Female) Exam: Vaginal Discharge, Other (scant white vaginal fluid w/ +whiff test). No: Normal External Exam (atrophic EGU), Adnexal Tenderness, Cervical Dilatation, Cervical Discharge, Cervical Fluid, Cervical Lesions, Cervix Motion Tenderness, Enlarged Uterus, Vaginal Lesions Back Exam: Normal Inspection, Full Range of Motion. No: CVA Tenderness (R), CVA Tenderness (L) Extremities: Normal Inspection, Normal Range of Motion, Non-Tender, No Pedal Edema, Normal Capillary Refill, Leg Pain Neurological: Alert, Oriented, CN II-XII Intact, Normal Cognition, Normal Gait, Normal Reflexes, No Motor/Sensory Deficits Psychiatric: Normal Affect, Anxious Skin Exam: Warm, Dry, Intact, Normal Color, No Rash. No: Ecchymosis Lymphatic: No Adenopathy EKG INTERPRETATION EKG Interpretation Comments: borderline criteria for LAE and non-specific IVCD. NSR. No ischemic changes. QTc WNL. Course - Vital Signs Last Recorded V/S: Last Vital Signs Temp 36.7 C 07/06/17 07:56 Pulse 57 L 07/06/17 08:55 Resp 12 07/06/17 08:55 BP 142/83 H 07/06/17 08:55 Pulse Ox 98 07/06/17 08:55 - Orders/Labs/Meds Orders: Active Orders 24 hr Category Date Time Status EKG Documentation Completion [RC] ASDIRECTED Care 07/06/17 06:36 Active Abdomen Pelvis w Cont [CT] Stat Exams 07/06/17 07:03 Taken Abdomen Series w Chest 1V [CR] Stat Exams 07/06/17 04:37 Taken CHLAMYDIA,AND GC BY [facility] Urgent Lab 07/06/17 05:15 Received CULTURE URINE [RM] Stat Lab 07/06/17 06:12 Received HYDROmorphone [Dilaudid] Med 07/06/17 06:08 Active 0.5 mg IVPUSH Q1H PRN Lactated Ringers [Ringers, Lactated] 1,000 ml Med 07/06/17 04:45 Active IV ASDIRECTED EKG 12 Lead [EK] Routine Ther 07/06/17 06:35 Ordered Medication Orders Hydromorphone HCl (Dilaudid) 0.5 mg IVPUSH Q1H PRN PRN Reason: Pain Last Admin: 07/06/17 07:50 Dose: 0.5 mg Admin: 07/06/17 06:28 Dose: 0.5 mg Lactated Ringer's (Ringers, Lactated) 1,000 mls @ 500 mls/hr IV ASDIRECTED JOHNATHAN Last Admin: 07/06/17 07:17 Dose: 500 mls/hr Infusion: 07/06/17 06:56 Dose: 500 mls/hr Admin: 07/06/17 04:56 Dose: 500 mls/hr Labs: Laboratory Tests 07/06/17 07/06/17 07/06/17 Range/Units 05:11 05:15 05:15 WBC 11.3 H (4.5-11.0) K/uL RBC 4.91 (3.30-5.50) M/uL Hgb 14.2 (12.0-15.0) g/dL Hct 43.3 (36.0-48.0) % MCV 88 (80-98) fL MCH 29 (27-31) pg MCHC 33 (32-36) % Plt Count 290 (150-400) K/uL Neut % (Auto) 82 H (36-66) % Lymph % (Auto) 12 L (24-44) % Williamson % (Auto) 5 (2-6) % Eos % (Auto) 1 L (2-4) % Baso % (Auto) 0 (0-1) % Sodium 142 (140-148) mmol/L Potassium 3.2 L (3.6-5.2) mmol/L Chloride 107 (100-108) mmol/L Carbon Dioxide 31 (21-32) mmol/L Anion Gap 7.2 (5.0-14.0) mmol/L BUN 20 H D (7-18) mg/dL Creatinine 1.0 (0.6-1.0) mg/dL Est Cr Clr Drug Dosing 55.27 mL/min Estimated GFR (MDRD) 56 L (>60) Glucose 128 H (74-106) mg/dL Lactic Acid (0.4-2.0) mmol/L Calcium 8.3 L (8.5-10.1) mg/dL Total Bilirubin 0.3 (0.2-1.0) mg/dL AST 26 (15-37) U/L ALT 33 (12-78) U/L Alkaline Phosphatase 69 (46-116) U/L Total Protein 6.2 L (6.4-8.2) g/dL Albumin 3.1 L (3.4-5.0) g/dL Globulin 3.1 (2.3-3.5) g/dL Albumin/Globulin Ratio 1.0 L (1.2-2.2) Lipase 171 (73-393) U/L Urine Color Urine Appearance Urine pH (4.5-8.0) Ur Specific [place] (1.008-1.030) Urine Protein (NEGATIVE) mg/dL Urine Glucose (UA) (NEGATIVE) mg/dL Urine Ketones (NEGATIVE) mg/dL Urine Occult Blood (NEGATIVE) Urine Nitrite (NEGATIVE) Urine Bilirubin (NEGATIVE) Urine Urobilinogen (NORMAL) mg/dL Ur Leukocyte Esterase (NEGATIVE) Urine RBC (0-5) Urine WBC (0-5) Ur Epithelial Cells Amorphous Sediment Urine Bacteria Urine Mucus Fluid Type Fluid pH 07/06/17 07/06/17 07/06/17 Range/Units 05:15 06:10 06:12 WBC (4.5-11.0) K/uL RBC (3.30-5.50) M/uL Hgb (12.0-15.0) g/dL Hct (36.0-48.0) % MCV (80-98) fL MCH (27-31) pg MCHC (32-36) % Plt Count (150-400) K/uL Neut % (Auto) (36-66) % Lymph % (Auto) (24-44) % Williamson % (Auto) (2-6) % Eos % (Auto) (2-4) % Baso % (Auto) (0-1) % Sodium (140-148) mmol/L Potassium (3.6-5.2) mmol/L Chloride (100-108) mmol/L Carbon Dioxide (21-32) mmol/L Anion Gap (5.0-14.0) mmol/L BUN (7-18) mg/dL Creatinine (0.6-1.0) mg/dL Est Cr Clr Drug Dosing mL/min Estimated GFR (MDRD) (>60) Glucose (74-106) mg/dL Lactic Acid 1.0 (0.4-2.0) mmol/L Calcium (8.5-10.1) mg/dL Total Bilirubin (0.2-1.0) mg/dL AST (15-37) U/L ALT (12-78) U/L Alkaline Phosphatase (46-116) U/L Total Protein (6.4-8.2) g/dL Albumin (3.4-5.0) g/dL Globulin (2.3-3.5) g/dL Albumin/Globulin Ratio (1.2-2.2) Lipase (73-393) U/L Urine Color Yellow Urine Appearance Cloudy Urine pH 5.0 (4.5-8.0) Ur Specific [place] 1.030 (1.008-1.030) Urine Protein Trace (NEGATIVE) mg/dL Urine Glucose (UA) Normal (NEGATIVE) mg/dL Urine Ketones 15 H (NEGATIVE) mg/dL Urine Occult Blood Trace (NEGATIVE) Urine Nitrite Negative (NEGATIVE) Urine Bilirubin Small (NEGATIVE) Urine Urobilinogen 1 (NORMAL) mg/dL Ur Leukocyte Esterase Negative (NEGATIVE) Urine RBC 0-5 (0-5) Urine WBC 0-5 (0-5) Ur Epithelial Cells Rare Amorphous Sediment Not seen Urine Bacteria Rare Urine Mucus Many Fluid Type Oth Fluid pH 8.0 Meds: Medications Generic Name Dose Route Start Last Admin Trade Name Freq PRN Reason Stop Dose Admin Hydromorphone HCl 0.5 mg 07/06/17 06:08 07/06/17 07:50 Dilaudid IVPUSH 0.5 mg Q1H PRN Administration Pain Lactated Ringer's 1,000 mls @ 500 mls/hr 07/06/17 04:45 07/06/17 07:17 Ringers, Lactated IV 500 mls/hr ASDIRECTED JOHNATHAN Administration Discontinued Medications Generic Name Dose Route Start Last Admin Trade Name Freq PRN Reason Stop Dose Admin Hydromorphone HCl 0.5 mg 07/06/17 04:40 07/06/17 04:56 Dilaudid IVPUSH 07/06/17 04:41 0.5 mg ONETIME ONE Administration Sodium Chloride 76 mls @ 3.5 mls/sec 07/06/17 07:27 07/06/17 07:39 Normal Saline IV 07/06/17 07:28 3.5 mls/sec ASDIRECTED STA Administration Ibuprofen 400 mg 07/06/17 08:35 07/06/17 08:42 Motrin PO 07/06/17 08:36 400 mg ONETIME ONE Administration Iopamidol 100 ml 07/06/17 07:26 07/06/17 07:38 Isovue-300 (61%) IV 07/06/17 07:27 100 ml . DIRECTED STA Administration Metoclopramide HCl 10 mg 07/06/17 08:35 07/06/17 08:42 Reglan IVPUSH 07/06/17 08:36 10 mg ONETIME ONE Administration Ondansetron HCl 4 mg 07/06/17 04:39 07/06/17 04:57 Zofran IVPUSH 07/06/17 04:40 4 mg ONETIME ONE Administration Ondansetron HCl 4 mg 07/06/17 06:34 07/06/17 06:43 Zofran IVPUSH 07/06/17 06:35 4 mg ONETIME ONE Administration Prochlorperazine Edisylate 10 mg 07/06/17 04:55 07/06/17 05:20 Compazine IVPUSH 07/06/17 04:56 Not Given ONETIME ONE - Re-Assessments/Exams Free Text/Narrative Re-Assessment/Exam: 07/06/17 06:40 Pain somewhat improved, nausea persists. Abdomen TTP w/o obvious peritoneal irritation. Continue with IVF and will consult Dr. Rodas. Free Text/Narrative Re-Assessment/Exam: 07/06/17 09:35 Much improved w/ PO ibuprofen and (IV) metoclopramide. Wants to go home. D/w bariatric surgery. Departure - Departure Time of Disposition: 09:48 Disposition: Home, Self-Care 01 Condition: Good Clinical Impression: Ureteric colic, Ovarian cyst, right - Discharge Information Instructions: Kidney Stones, [id number], Bacterial Vaginosis, [id number]-[id number], Ovarian Cyst, [id number], Ovarian Cyst Referrals: Danny Zaldivar MD [Primary Care Provider] - Forms: ED Department Discharge Additional Instructions: You have an ovarian cyst that requires further evaluation and testing. You need to contact your primary care provider and/or LEGAL ASSOCIATE regarding this. Keep your self hydrated. Take metocloperamide as needed for nausea and/or pain. Ibuprofen 200 mg three times a day (as needed for pain). Acetaminophen 650 four times a day. Oxycodone 5-10mg #30 q4h PRN. Strain your urine and save stone. Metronidazole vaginal gel at bed time for five days. Do not drink alcohol while taking metronidazole or oxycodone (and until you are well). Do not drive while in severe pain or while taking oxycodone. Call your regular doctor when you get home. Leave message, and try to be seen on Saturday or Saturday. - My Orders Last 24 Hours: My Active Orders 07/06/17 04:37 Abdomen Series w Chest 1V [CR] Stat 07/06/17 04:45 Lactated Ringers [Ringers, Lactated] 1,000 ml IV ASDIRECTED 07/06/17 05:15 CHLAMYDIA,AND GC BY AP[facility] Urgent 07/06/17 06:08 HYDROmorphone [Dilaudid] 0.5 mg IVPUSH Q1H PRN 07/06/17 06:12 CULTURE URINE [RM] Stat 07/06/17 06:35 EKG 12 Lead [EK] Routine 07/06/17 06:36 EKG Documentation Completion [RC] ASDIRECTED 07/06/17 07:03 Abdomen Pelvis w Cont [CT] Stat - Assessment/Plan Last 24 Hours: My Active Orders 07/06/17 04:37 Abdomen Series w Chest 1V [CR] Stat 07/06/17 04:45 Lactated Ringers [Ringers, Lactated] 1,000 ml IV ASDIRECTED 07/06/17 05:15 [facility] Ur[facility] 07/06/17 06:08 HYDROmorphone [Dilaudid] 0.5 mg IVPUSH Q1H PRN 07/06/17 06:12 CULTURE URINE [RM] Stat 07/06/17 06:35 EKG 12 Lead [EK] Routine 07/06/17 06:36 EKG Documentation Completion [RC] ASDIRECTED 07/06/17 07:03 Abdomen Pelvis w Cont [CT] Stat Assessment:: Abd paiin in post Ingrid-en-Y concerning for obstruction v. colic in spite of non- obstructive AAS==>obtained CT which showed 4mm R UVJ stone w/ mild hydronephrosis as well as a modest (2.6x2.5) R ovarian cyst. The nephrolithiasis is likely eitology of acute pain, but ovarian cyst is concerning in postmenopausal woman. This will require further evaluation (CA125 , ultrasound) by her PCP and/or LEGAL ASSOCIATE.
[2017-07-06] MEDS ORDERED: Iopamidol 612 MG/ML 100 ML Bottle IV STA (07:26)
[2017-07-06] MEDS ORDERED: Ibuprofen 400 MG Tab PO ONE (08:35)
[2017-07-06] MEDS ORDERED: Metoclopramide 10 MG/2 ML SDV IVPUSH ONE (08:35)
[2017-07-06 08:56] VITALS: BP 142/83
== END 2017-07-06 10:29 | disposition home or self-care (01) ==
LOC: JP.ED 03:43
DX: N13.2 Hydronephrosis with renal and ureteral calculous obstruction (principal); N83.201 Unspecified ovarian cyst, right side; I10 Essential (primary) hypertension; J44.9 Chronic obstructive pulmonary disease, unspecified; G43.909 Migraine, unspecified, not intractable, without status migrainosus; M19.90 Unspecified osteoarthritis, unspecified site; Z79.899 Other long term (current) drug therapy; Z87.442 Personal history of urinary calculi; Z90.49 Acquired absence of other specified parts of digestive tract; Z79.82 Long term (current) use of aspirin; Z88.1 Allergy status to other antibiotic agents
CPT/HCPCS: 36415; 74022; 74177; 80053; 81001; 83605; 83690; 83986; 85025; 87086; 87205; 87210; 87491; 87591; 93005; 96361; 96374; 96375; 96376; 99285; A9270; J1170; J2405; J2765; J7030; J7120; Q9967